=== PATIENT | male | born 1965 | race Caucasian/White ===

== ENCOUNTER 2017-07-06 10:28 | Day surgery (SDC) | payer BC, OTHER ==
[~2017-07-06] VITALS: Ht 177.8 cm; Wt 102.1 kg
--- NOTE | ~2017-07-06 | H ---
[facility] [place] [address] HISTORY AND PHYSICAL Name: ELEANOR BARRETT [id number] Admission: 07/06/17 Attend Phys: Discharge: Date of : 61 Report #: [id number] THIS REPORT FOR: //name// CC: DANIELLE physician/PCP Syeda Kim DATE OF SERVICE: 07/06/2017 CHIEF COMPLAINT: Left perianal pain. HISTORY OF PRESENT ILLNESS: This is a 51-year-old male patient who complains of pain around his left anus on the left side. He has had difficulty with pressure starting approximately 3 days ago, gradually worsening to the point at which he sought medical attention. He was seen in the [place] emergency room. Exam revealed a left perianal abscess. The patient reports that he has had a "boil" around his anus in the past in a slightly different location. This was incised and drained approximately 2 years ago. He reports a low-grade fever. Bowels are functional with no complaints of bright red blood per rectum. PAST MEDICAL HISTORY: Denies. PAST SURGICAL HISTORY: Incision and drainage of perianal abscess 2-3 years ago. MEDICATIONS: No routine medications at home. ALLERGIES: No known drug allergies. FAMILY HISTORY: Reviewed and noncontributory to this hospitalization. SOCIAL HISTORY: The patient denies use of tobacco, alcohol, or illicit drugs. 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 REVIEW OF SYSTEMS: As per history of present illness, in addition: GENERAL: Denies unintentional weight loss. HEENT: Denies changes in taste, vision, hearing, or smell. RESPIRATORY: Denies shortness of breath, COPD, or asthma. CARDIOVASCULAR: Denies chest pain or palpitations. GASTROINTESTINAL: As per history of present illness. Denies abdominal pain, nausea, or vomiting. GENITOURINARY: Denies dysuria, urgency, or increased urinary frequency. RECTAL: See history of present illness. NEUROLOGIC: Denies headaches, numbness, or tingling. MUSCULOSKELETAL: Denies myalgia, arthralgia, or arthritis. PSYCHIATRIC: Denies depression, anxiety or suicidal ideations. SKIN AND INTEGUMENTARY: Denies new skin lesions, rashes, or moles. [address] [address] HISTORY AND PHYSICAL Name: ELEANOR BARRETT Room #: REG [facility].#: [id number] Admission: 07/06/17 Attend Phys: Discharge: Date of : 61 Report #: [id number] ENDOCRINE: Denies polydipsia, polyuria, heat or cold intolerance. HEMATOLOGIC: Denies easy bleeding, bruising, or anemia. All other review of systems is negative. PHYSICAL EXAMINATION: VITAL SIGNS: Temperature 98.3, blood pressure 173/99, pulse 97, respirations 18, SpO2 of 98%, and BMI 32.3. GENERAL: This is a well-developed, well-nourished 51-year-old male patient, in no acute distress. HEENT: Atraumatic, normocephalic with moist mucosal membranes. Oropharynx is clear. He has no scleral icterus. NECK: Supple. No appreciable lymphadenopathy. Trachea is midline. CHEST: Clear bilaterally. No crackles or wheezes. CARDIOVASCULAR: Regular rate and rhythm. ABDOMEN: Soft, nontender, and nondistended. GENITOURINARY: Normal external male genitalia. RECTAL: Reveals exquisite tenderness to palpation in the left perianal area where there is fluctuance and overlying erythema or edema. There are no openings and no drainage. EXTREMITIES: No clubbing, cyanosis or edema. NEUROLOGIC: Cranial nerves 2-12 are grossly intact. PSYCHIATRIC: Normal mood and affect. SKIN AND INTEGUMENTARY: No acute inflammatory changes, rashes or lesions are present. LABORATORY DATA: CBC shows a white blood cell count of 12.2, hemoglobin 16.1, hematocrit 46.6 and platelets 220. Electrolytes show a sodium of 135, potassium 3.9, chloride 101, CO2 of 29, BUN 18, creatinine 1.2, and glucose 200. RADIOLOGIC STUDIES: A pelvic CT showed a 3.2 cm AP x 1.4 cm transverse x 3.8 cm high perianal abscess that appeared to be well contained. The surrounding tissue showed mild edema. IMPRESSION AND PLAN: This is a 51-year-old male patient with a perianal abscess. We discussed the pathophysiology and natural history of this. My initial plan was to perform an incision and drainage at the bedside. The patient reports having had this 2 years ago and states that it was "the worst pain of his life." He does not wish to undergo another bedside procedure for this. He will be taken to the operating room for incision and drainage of his perianal abscess as well as rectal exam under anesthesia. We discussed the risks, benefits and expectations of the procedure in detail. The patient [address] [address] HISTORY AND PHYSICAL Name: ELEANOR BARRETT Room #: INDERJIT Martin#: [id number] Admission: 07/06/17 Attend Phys: Discharge: Date of : 61 Report #: [id number] expressed understanding and would like to proceed. He will be scheduled to undergo the procedure at the next earliest availability. <ELECTRONICALLY SIGNED> By: Osorio Porter MD, FACS 07/06/17 1725 [id number] Osorio Porter MD, FACS /nt
--- NOTE | ~2017-07-06 | O ---
[facility] [place] [address] OPERATIVE REPORT Name: ELEANOR BARRETT Room #: 150- MACIE Martin#: [id number] Admission: 07/06/17 Attend Phys: Osorio Porter MD, F Discharge: 07/06/17 Date of : 61 Report #: [id number] THIS REPORT FOR: //name// CC: DANIELLE physician/PCP Osorio Porter DATE OF SERVICE: 07/06/2017 SURGEON: Osorio Porter MD METALWORKING INSTRUCTOR: None. PREOPERATIVE DIAGNOSIS: Left perianal abscess. POSTOPERATIVE DIAGNOSIS: Left perianal abscess. PROCEDURE: 1. Incision and drainage of left perianal abscess. 2. Rectal exam under general anesthesia. ANESTHESIA: General laryngeal mask anesthesia and local anesthetic. ESTIMATED BLOOD LOSS: 15 mL. SPECIMEN: None. COMPLICATIONS: None appreciated. INDICATIONS FOR PROCEDURE: This is a 51-year-old male patient with pain around his left anus with pressure starting approximately 3 days ago with gradual worsening of his pain. He was found to have a left perianal abscess on exam. CT showed 3.2 cm AP x 1.4 cm transverse x 3.8 cm high perianal abscess well contained with mild edema of the surrounding tissue. Exam was consistent with this. The patient presents now for incision and drainage of the abscess. DESCRIPTION OF PROCEDURE IN DETAIL: After the risks, benefits and expectations of the operation were discussed with the patient, informed consent was obtained. The patient was identified in the preoperative holding area. He was given IV antibiotics as documented in the chart in line with SCIP metrics. The patient was then taken to the operating room where he was placed in the supine position. SCDs were placed on the patient's bilateral lower extremities and pneumatic compression was initiated. The patient was then given IV sedation and a laryngeal mask was placed without difficulty. The patient was placed in candy cane stirrups on the operating room table. His perineum and anal area were prepped and draped in a standard sterile fashion. A time-out was performed to identify the correct patient and procedure. Local anesthetic was infiltrated [address] [address] OPERATIVE REPORT Name: ELEANOR BARRETT Room #: 150-1 MACIE Martin#: [id number] Admission: 07/06/17 Attend Phys: Osorio Porter MD, F Discharge: 07/06/17 Date of : 61 Report #: [id number] into the skin and subcutaneous tissue in the area of the planned incision as well as around the anus for a posterior anal block. A digital rectal exam was performed. The patient's prostate was normal. No fistulae or fissures were identified. A sharp #15 blade scalpel was then used to make the incision through the skin and subcutaneous tissue into the abscess cavity. The cavity was opened with digital probing. Purulent fluid was identified. Cultures were taken to be sent for aerobes, anaerobes and fungus. The entire cavity was palpated with no evidence for spread. A bimanual exam revealed no openings into the anal canal. The wound was then copiously irrigated. Bleeding points were made hemostatic with electrocautery. After appropriate irrigation of the abscess cavity, the cavity was packed with a quarter inch packing strip of 1:1 Betadine to normal saline; 4 x 4's and tape were placed. The patient tolerated the procedure well. He was returned to the supine position, awakened and the laryngeal mask was removed without difficulty. He was taken to the recovery room in stable condition with no apparent intraoperative complications. The mesh briefs were placed to hold the dressing in place. <ELECTRONICALLY SIGNED> By: Osorio Porter MD, FACS 07/08/17 1522 [id number] Osorio Porter MD, FACS /nt
[2017-07-06 10:38] VITALS: BP 173/99
[2017-07-06 12:06] LABS: ABSOLUTE NEUTROPHILS 9.7 thou/uL (1.4-8.2); BASOPHILS 0.6 % (0.0-2.0); EOSINOPHILS 0.9 % (0.0-3.0); HEMATOCRIT 46.6 % (42.0-52.0); HEMOGLOBIN 16.1 gm/dL (14.0-18.0); LYMPHOCYTES 12.4 % (24.0-44.0); MCH 29.3 pg (26.0-34.0); MCHC 34.4 g/dL (28.0-37.0); MONOCYTES 6.2 % (1.0-8.0); PLATELET COUNT 220 thou/uL (150-400); POLYS 79.9 % (36.0-66.0); RBC 5.49 mil/uL (4.50-6.00); WBC 12.2 thou/uL (4.0-11.0)
[2017-07-06 12:11] LABS: CALCIUM 9.1 mg/dL (8.5-10.1); CREATININE 1.2 mg/dL (0.7-1.3); POTASSIUM 3.9 mmol/L (3.5-5.1)
[2017-07-06 16:45] VITALS: BP 146/88
[2017-07-06] MEDS ORDERED: SENNA-S TABLET1 EACH PO (19:42)
[2017-07-06] MEDS ORDERED: HYDROCODONE-AP1 EAC6 PO (19:42)
[2017-07-06] MEDS ORDERED: NEURONTIN 300M300 M2 PO (19:42)
[2017-07-06] MEDS ORDERED: KEFLEX250 M1 PO (19:48)
[2017-07-06 20:09] VITALS: BP 146/88
== END 2017-07-06 22:01 | disposition home or self-care (01) ==
LOC: ER 10:28 → TBA 19:20 → ER 19:20 → OR 19:49 → TBA 22:01
PROVIDERS: Emergency Medicine
DX: K61.0 Anal abscess (principal); Z79.891 Long term (current) use of opiate analgesic
CPT/HCPCS: 50010; 50101; 50386; 62110; 62900; 70005